=== PATIENT | female | born 1955 | race Caucasian/White ===

== ENCOUNTER 2018-07-21 07:52 | Emergency (ER) | payer OTHER ==
[~2018-07-21] VITALS: Ht 160 cm; Wt 64.9 kg
[2018-07-21] MEDS ORDERED: HYDRALAZINE 20MG/ML VIAL IV ONE (08:00)
[2018-07-21 08:11] LABS: BASOPHILS % 0.8 % (0.0-2.0); EOSINOPHILS % 2.6 % (0.0-5.0); HEMATOCRIT. 45.5 % (36.0-48.0); HEMOGLOBIN. 15.6 g/dL (12.0-16.0); LYMPHOCYTES % 51.2 % (20.0-50.0); MEAN CORPUSCULAR VOLUME 90.4 fL (81.0-99.0); MEAN PLATELET VOLUME 11.5 fl (7.4-10.4); MONOCYTES % 7.7 % (2.0-8.0); NEUTROPHILS % 37.7 % (40.0-76.0); PLATELET 172 x1000/uL (130-400); RED BLOOD CELL COUNT 5.04 mill/uL (4.2-5.4)
[2018-07-21 08:22] LABS: CHLORIDE 108 mEq/L (98-107); ETHANOL BLOOD < 10 mg/dL
[2018-07-21 08:28] LABS: PROTHROMBIN TIME 9.9 sec (9.1-11.1)
[2018-07-21 08:29] LABS: CREATINE KINASE 66 IU/L (26-192); LDL CHOLESTEROL 140 mg/dL (5-100)
[2018-07-21] MEDS ORDERED: ALTEPLASE 100MG/VIAL IV NR (08:40)
[2018-07-21] MEDS ORDERED: ALTEPLASE IV NR (08:40)
[2018-07-21] MEDS ORDERED: CONTAINER EMPTY IV NR (08:40)
[2018-07-21] MEDS ORDERED: LABETALOL 5MG/ML SYR 20 MG/4 ML SYRINGE IV ONE (09:00)
[2018-07-21] MEDS ORDERED: KCL 20MEQ/100ML PREMIX 100 ML IV ONE (10:00)
[2018-07-21 10:01] VITALS: BP 151/82
[2018-07-21] MEDS ORDERED: IOHEXOL-350 100 ML BOTTLE ONE (10:20)
[2018-07-21 10:30] LABS: CLARITY URINE CLEAR (CLEAR); COLOR URINE YELLOW (YELLOW); KETONES URINE NEGATIVE (NEGATIVE); LEUKOCYTE ESTERASE URINE NEGATIVE (NEGATIVE); NITRITE URINE NEGATIVE (NEGATIVE); OCCULT BLOOD URINE NEGATIVE (NEGATIVE); PROTEIN URINE NEGATIVE (NEGATIVE); SPECIFIC GRAVITY URINE 1.016 (1.005-1.030); UROBILINOGEN URINE 0.2 E.U./dL (0.2-1.0)
[2018-07-21 10:45] LABS: *AMPHETAMINES SCREEN URINE NEGATIVE (NEGATIVE); *BARBITURATES SCREEN URINE NEGATIVE (NEGATIVE); *BENZODIAZEPINES SCREEN URINE NEGATIVE (NEGATIVE); *COCAINE SCREEN URINE NEGATIVE (NEGATIVE); CANNABINOID URINE SCREEN NEGATIVE (NEGATIVE); METHADONE URINE SCREEN NEGATIVE (NEGATIVE); OPIATES URINE SCREEN NEGATIVE (NEGATIVE); PHENCYCLIDINE URINE SCREEN NEGATIVE (NEGATIVE)
== END 2018-07-21 10:20 | disposition short-term general hospital (02) ==
LOC: ER 08:06 → CANBEDREQ 13:24
DX: I63.9 Cerebral infarction, unspecified (principal); I10 Essential (primary) hypertension; R94.31 Abnormal electrocardiogram [ECG] [EKG]
CPT/HCPCS: 36415; 37195; 70450; 70496; 71045; 80053; 80305; 81003; 82550; 83721; 83880; 84484; 85025; 85610; 85730; 93005; 96365; 96375; 99291; G0482; J0360; J2997; J3480; J3490; Q9967; J7060